=== PATIENT | male | born 1955 | race African-American/Black ===

== ENCOUNTER 2022-04-22 23:43 | Inpatient (IN) | payer MEDICARE, OTHER ==
[~2022-04-22] VITALS: Ht 167.6 cm; Wt 61.0 kg
[~2022-04-22 23:43] MED LIST: HYDR-4134 PO; LISI1TAB13 PO; OMEP40CA20 PO; QUET100T PO; TRAZ-251 PO
[2022-04-23] VITALS (13 sets, daily range): BP systolic 92–136; BP diastolic 54–88
[2022-04-23] MEDS ORDERED: FUROSEMIDE 40MG/4ML VIAL IV ONE (00:15)
[2022-04-23] MEDS ORDERED: ASPIRIN 81MG TABLET PO ONE (00:15)
[2022-04-23 00:27] LABS: BASOPHILS % 0.1 % (0.0-2.0); HEMATOCRIT. 33.7 % (42.0-52.0); HEMOGLOBIN. 11.1 g/dL (14.0-18.0); LYMPHOCYTES % 10.7 % (20.0-50.0); MEAN PLATELET VOLUME 7.5 fl (7.4-10.4); NEUTROPHILS % 81.2 % (40.0-76.0); PLATELET 553 x1000/uL (130-400); RED BLOOD CELL COUNT 3.96 mill/uL (4.7-6.1); RED CELL DISTRIBUTION WIDTH 13.9 % (11.6-14.6)
[2022-04-23 00:36] LABS: CHLORIDE 102 mEq/L (98-107)
[2022-04-23 01:26] LABS: BG BASE EXCESS -2.3 mmol/L (-2.0-2.0); BG CARBOXYHEMOGLOBIN 0.7 % (0.5-1.5); BG DEOXYHEMOGLOBIN 1.3 % (0.0-5.0); BG FRACTION INSPIRED OXYGEN 100; BG HCO3 ACT 21.6 mmol/L (22.0-26.0); BG METHEMOGLOBIN 0.1 % (0.0-1.5); BG OXYGEN SATURATION 98.7 % (92.0-98.5); BG OXYHEMOGLOBIN 97.9 % (94.0-97.0); BG PCO2 34.8 mmHg (35.0-45.0); BG PO2 131.1 mmHg (75.0-100.0); BG SAMPLE SITE RIGHT RADIAL; BG TOTAL HEMOGLOBIN 15.7 g/dL (12.0-18.0); BG VENT MODE MASK - NRB
[2022-04-23] MEDS: METOPROLOL TARTRATE 5MG/5ML VIAL IV SCH ×3 (01:30→02:00)
[2022-04-23] MEDS ORDERED: IPRATROPIUM/ALBUTEROL 0.5-3(2.5)MG/3ML NEB NEB PRN (07:30)
[2022-04-23] MEDS ORDERED: AZITHROMYCIN 500 MG in DEXT 5% WATER 250 ML IV SCH (07:30)
[2022-04-23] MEDS ORDERED: MAGNESIUM/ALUMINUM HYDROXIDE/SIMETHICONE 30ML UDC PO PRN (07:30)
[2022-04-23] MEDS ORDERED: NITROGLYCERIN 0.4MG TABLET SL SL PRN (07:30)
[2022-04-23] MEDS ORDERED: ACETAMINOPHEN 325MG TABLET PO PRN (07:30)
[2022-04-23] MEDS ORDERED: GUAIFENESIN 200MG/10ML SUGAR FREE UDC PO PRN (07:30)
[2022-04-23] MEDS ORDERED: CLONIDINE 0.1MG TABLET PO PRN (07:30)
[2022-04-23] MEDS ORDERED: DOCUSATE SODIUM 100MG CAPSULE PO PRN (07:30)
[2022-04-23] MEDS ORDERED: KETOROLAC 15MG/ML VIAL IV PRN (07:30)
[2022-04-23] MEDS ORDERED: ONDANSETRON HCL 4MG/2ML INJ IV PRN (07:30)
[2022-04-23 08:17] LABS: ETHANOL BLOOD < 10 mg/dL; TOTAL IRON BINDING CAPACITY 363 ug/dL (250-450)
[2022-04-23 08:34] LABS: FOLIC ACID (FOLATE) SERUM 9.1 ng/mL (>5.38)
[2022-04-23 08:42] LABS: BG BASE EXCESS -1.7 mmol/L (-2.0-2.0); BG CARBOXYHEMOGLOBIN 0.3 % (0.5-1.5); BG DEOXYHEMOGLOBIN 3.7 % (0.0-5.0); BG FRACTION INSPIRED OXYGEN 50; BG HCO3 ACT 21.5 mmol/L (22.0-26.0); BG METHEMOGLOBIN 0.4 % (0.0-1.5); BG OXYGEN SATURATION 96.3 % (92.0-98.5); BG OXYHEMOGLOBIN 95.6 % (94.0-97.0); BG PCO2 31.4 mmHg (35.0-45.0); BG PH 7.453 (7.350-7.450); BG PO2 91.8 mmHg (75.0-100.0); BG SAMPLE SITE RIGHT RADIAL; BG TOTAL HEMOGLOBIN 11.2 g/dL (12.0-18.0); BG VENT MODE MASK - BIPAP
[2022-04-23] MEDS ORDERED: CEFTRIAXONE 1 G PREMIX 50 ML IV SCH (09:00)
[2022-04-23] MEDS ORDERED: AZITHROMYCIN 500MG/250ML 250 ML IV SCH (09:00)
[2022-04-23] MEDS: METHYLPREDNISOLONE SOD SUCC 125 MG/2 ML VIAL IV SCH ×3 (09:01→21:00)
[2022-04-23] MEDS: ASCORBIC ACID 500 MG TABLET PO SCH ×2 (09:02→20:15)
[2022-04-23] MEDS: ASPIRIN 325MG EC TABLET PO SCH (09:02)
[2022-04-23] MEDS: ENOXAPARIN 40MG/0.4ML SYR SUBCUT SCH (09:02)
[2022-04-23] MEDS: ZINC SULFATE 220 MG ( 50 ) CAPSULE PO SCH (09:03)
[2022-04-23] MEDS: SPIRONOLACTONE 25MG TABLET PO SCH ×2 (09:04→20:15)
[2022-04-23] MEDS: FAMOTIDINE 20MG TABLET PO SCH (09:04)
[2022-04-23] MEDS: CHOLECALCIFEROL (D3) 1000 UNIT TABLET PO SCH (09:05)
[2022-04-23] MEDS: FUROSEMIDE 40MG/4ML VIAL IVP SCH ×2 (09:05→20:15)
[2022-04-23 10:02] LABS: CLARITY URINE CLEAR (CLEAR); COLOR URINE YELLOW (YELLOW); KETONES URINE NEGATIVE (NEGATIVE); LEUKOCYTE ESTERASE URINE NEGATIVE (NEGATIVE); NITRITE URINE NEGATIVE (NEGATIVE); OCCULT BLOOD URINE 2+ (NEGATIVE); PROTEIN URINE TRACE (NEGATIVE); SPECIFIC GRAVITY URINE 1.015 (1.005-1.030)
[2022-04-23 10:18] LABS: *AMPHETAMINES SCREEN URINE NEGATIVE (NEGATIVE); *BARBITURATES SCREEN URINE NEGATIVE (NEGATIVE); *BENZODIAZEPINES SCREEN URINE NEGATIVE (NEGATIVE); *COCAINE SCREEN URINE NEGATIVE (NEGATIVE); CANNABINOID URINE SCREEN PRESUMTIVE POSITIVE (NEGATIVE); METHADONE URINE SCREEN NEGATIVE (NEGATIVE); OPIATES URINE SCREEN NEGATIVE (NEGATIVE); PHENCYCLIDINE URINE SCREEN NEGATIVE (NEGATIVE)
[2022-04-23 15:39] LABS: CREATINE KINASE MB FRACTION 1.5 ng/mL (0.5-3.6)
[2022-04-23] MEDS: IPRATROPIUM/ALBUTEROL 0.5-3(2.5)MG/3ML NEB HHN SCH ×2 (16:16→20:53)
[2022-04-23] MEDS: ZOLPIDEM TARTRATE 5MG TABLET PO PRN (21:27)
[2022-04-24] VITALS (22 sets, daily range): BP systolic 99–145; BP diastolic 48–79
[2022-04-24] MEDS: IPRATROPIUM/ALBUTEROL 0.5-3(2.5)MG/3ML NEB HHN SCH ×4 (00:45→11:53)
[2022-04-24 01:22] LABS: CREATINE KINASE MB FRACTION 1.1 ng/mL (0.5-3.6)
[2022-04-24] MEDS: METOPROLOL TARTRATE 5MG/5ML VIAL IV SCH (03:24)
[2022-04-24] MEDS ORDERED: DILTIAZEM HCL 60MG TABLET PO NR (05:00)
[2022-04-24] MEDS: METHYLPREDNISOLONE SOD SUCC 125 MG/2 ML VIAL IV SCH (05:06)
[2022-04-24 07:41] LABS: HEMATOCRIT. 30.8 % (42.0-52.0); HEMOGLOBIN. 10.3 g/dL (14.0-18.0); MEAN CORPUSCULAR HEMOGLOBIN 27.8 pg (28.0-32.0); MEAN CORPUSCULAR VOLUME 82.7 fL (80.0-94.0); MEAN PLATELET VOLUME 8.1 fl (7.4-10.4); PLATELET 540 x1000/uL (130-400); RED BLOOD CELL COUNT 3.73 mill/uL (4.7-6.1); RED CELL DISTRIBUTION WIDTH 13.9 % (11.6-14.6)
[2022-04-24 07:53] LABS: CHLORIDE 99 mEq/L (98-107)
[2022-04-24] MEDS: SPIRONOLACTONE 25MG TABLET PO SCH ×2 (09:00→21:00)
[2022-04-24] MEDS: ZINC SULFATE 220 MG ( 50 ) CAPSULE PO SCH (09:45)
[2022-04-24] MEDS: FAMOTIDINE 20MG TABLET PO SCH (09:45)
[2022-04-24] MEDS: ASCORBIC ACID 500 MG TABLET PO SCH ×2 (09:45→21:00)
[2022-04-24] MEDS: ASPIRIN 325MG EC TABLET PO SCH (09:45)
[2022-04-24] MEDS: CHOLECALCIFEROL (D3) 1000 UNIT TABLET PO SCH (09:45)
[2022-04-24] MEDS: FUROSEMIDE 40MG/4ML VIAL IVP SCH ×2 (09:46→21:00)
[2022-04-24] MEDS: ENOXAPARIN 40MG/0.4ML SYR SUBCUT SCH (09:46)
[2022-04-24] MEDS ORDERED: DILTIAZEM HCL 30MG TABLET PO NR (10:45)
[2022-04-24] MEDS: CEFTRIAXONE 1,000 MG in DEXTROSE 5% WATER 50 ML IV SCH (10:47)
[2022-04-24] MEDS: DILTIAZEM HCL 90MG TABLET PO SCH ×3 (11:55→23:16)
[2022-04-24] MEDS ORDERED: DILTIAZEM HCL 60MG TABLET PO SCH (12:00)
[2022-04-24] MEDS: AZITHROMYCIN 500MG in DEXTROSE 5% WATER 250ML IV SCH (12:36)
[2022-04-24 13:00] LABS: PLATELET ESTIMATE INCREASED
[2022-04-24] MEDS: IPRATROPIUM BROMIDE (0.02%) 0.5MG/2.5ML NEB HHN SCH (20:44)
[2022-04-24] MEDS: ZOLPIDEM TARTRATE 5MG TABLET PO PRN (21:00)
[2022-04-25] VITALS (12 sets, daily range): BP systolic 100–143; BP diastolic 51–77
[2022-04-25] MEDS: IPRATROPIUM BROMIDE (0.02%) 0.5MG/2.5ML NEB HHN SCH ×4 (01:16→21:38)
[2022-04-25] MEDS: DILTIAZEM HCL 90MG TABLET PO SCH ×4 (05:50→23:58)
[2022-04-25] MEDS: SPIRONOLACTONE 25MG TABLET PO SCH ×2 (08:28→21:25)
[2022-04-25] MEDS: CHOLECALCIFEROL (D3) 1000 UNIT TABLET PO SCH (08:28)
[2022-04-25] MEDS: FAMOTIDINE 20MG TABLET PO SCH (08:28)
[2022-04-25] MEDS: ZINC SULFATE 220 MG ( 50 ) CAPSULE PO SCH (08:28)
[2022-04-25] MEDS: ASPIRIN 81MG EC TABLET PO SCH (08:29)
[2022-04-25] MEDS: AZITHROMYCIN 500MG in DEXTROSE 5% WATER 250ML IV SCH (08:29)
[2022-04-25] MEDS: ENOXAPARIN 40MG/0.4ML SYR SUBCUT SCH (08:31)
[2022-04-25] MEDS: FUROSEMIDE 40MG/4ML VIAL IVP SCH (08:32)
[2022-04-25] MEDS: ASCORBIC ACID 500 MG TABLET PO SCH ×2 (08:33→21:28)
[2022-04-25] MEDS: CEFTRIAXONE 1,000 MG in DEXTROSE 5% WATER 50 ML IV SCH (11:25)
[2022-04-25] MEDS: ACETAMINOPHEN 325MG TABLET PO PRN (21:28)
[2022-04-26] VITALS (13 sets, daily range): BP systolic 94–142; BP diastolic 42–76
[2022-04-26] MEDS: ZOLPIDEM TARTRATE 5MG TABLET PO PRN (01:14)
[2022-04-26] MEDS: IPRATROPIUM BROMIDE (0.02%) 0.5MG/2.5ML NEB HHN SCH ×2 (03:23→08:34)
[2022-04-26] MEDS: DILTIAZEM HCL 90MG TABLET PO SCH ×4 (04:29→23:54)
[2022-04-26] MEDS ORDERED: FUROSEMIDE 40MG/4ML VIAL IVP SCH (09:00)
[2022-04-26] MEDS: AZITHROMYCIN 500MG in DEXTROSE 5% WATER 250ML IV SCH (09:00)
[2022-04-26] MEDS: ZINC SULFATE 220 MG ( 50 ) CAPSULE PO SCH (09:33)
[2022-04-26] MEDS: CHOLECALCIFEROL (D3) 1000 UNIT TABLET PO SCH (09:33)
[2022-04-26] MEDS: FAMOTIDINE 20MG TABLET PO SCH (09:33)
[2022-04-26] MEDS: ASPIRIN 81MG EC TABLET PO SCH (09:33)
[2022-04-26] MEDS: ENOXAPARIN 40MG/0.4ML SYR SUBCUT SCH (09:33)
[2022-04-26] MEDS: ASCORBIC ACID 500 MG TABLET PO SCH ×2 (09:34→21:00)
[2022-04-26] MEDS: SPIRONOLACTONE 25MG TABLET PO SCH ×2 (09:34→21:00)
[2022-04-26] MEDS ORDERED: DIGOXIN 500MCG/2ML AMP IV NR (11:30)
[2022-04-26 17:14] LABS: CHLORIDE 98 mEq/L (98-107)
[2022-04-26] MEDS: CEFTRIAXONE 1,000 MG in DEXTROSE 5% WATER 50 ML IV SCH (17:19)
[2022-04-26] MEDS: DILTIAZEM HCL 5MG/ML 5ML VIAL IV PRN (17:20)
[2022-04-26] MEDS: DIGOXIN 125MCG TABLET PO SCH (18:00)
[2022-04-27] VITALS (17 sets, daily range): BP systolic 103–141; BP diastolic 48–94
[2022-04-27] MEDS: DILTIAZEM HCL 5MG/ML 5ML VIAL IV PRN (03:41)
[2022-04-27] MEDS: DILTIAZEM HCL 90MG TABLET PO SCH ×3 (06:10→18:16)
[2022-04-27] MEDS: CHOLECALCIFEROL (D3) 1000 UNIT TABLET PO SCH (07:44)
[2022-04-27] MEDS: ZINC SULFATE 220 MG ( 50 ) CAPSULE PO SCH (07:44)
[2022-04-27] MEDS: ASCORBIC ACID 500 MG TABLET PO SCH ×2 (07:44→23:01)
[2022-04-27] MEDS: FAMOTIDINE 20MG TABLET PO SCH (07:44)
[2022-04-27] MEDS: SPIRONOLACTONE 25MG TABLET PO SCH ×2 (07:44→23:00)
[2022-04-27] MEDS: ASPIRIN 81MG EC TABLET PO SCH (07:45)
[2022-04-27] MEDS: ENOXAPARIN 40MG/0.4ML SYR SUBCUT SCH (07:45)
[2022-04-27] MEDS: AZITHROMYCIN 500MG in DEXTROSE 5% WATER 250ML IV SCH (08:31)
[2022-04-27] MEDS: CEFTRIAXONE 1,000 MG in DEXTROSE 5% WATER 50 ML IV SCH (11:04)
[2022-04-27 14:55] LABS: BG BASE EXCESS 4.1 mmol/L (-2.0-2.0); BG CARBOXYHEMOGLOBIN 0.2 % (0.5-1.5); BG DEOXYHEMOGLOBIN 8.5 % (0.0-5.0); BG FRACTION INSPIRED OXYGEN 21; BG HCO3 ACT 26.8 mmol/L (22.0-26.0); BG METHEMOGLOBIN 0.3 % (0.0-1.5); BG OXYGEN SATURATION 91.5 % (92.0-98.5); BG PCO2 33.7 mmHg (35.0-45.0); BG PH 7.519 (7.350-7.450); BG PO2 58.6 mmHg (75.0-100.0); BG SAMPLE SITE RIGHT RADIAL; BG TOTAL HEMOGLOBIN 11.6 g/dL (12.0-18.0); BG VENT MODE ROOM AIR
[2022-04-27] MEDS: DIGOXIN 125MCG TABLET PO SCH (18:16)
[2022-04-27] MEDS: ACETAMINOPHEN 325MG TABLET PO PRN (23:03)
[2022-04-28] VITALS (22 sets, daily range): BP systolic 93–148; BP diastolic 54–85
[2022-04-28] MEDS: DILTIAZEM HCL 90MG TABLET PO SCH ×4 (01:02→17:57)
[2022-04-28] MEDS: ENOXAPARIN 40MG/0.4ML SYR SUBCUT SCH (08:33)
[2022-04-28] MEDS: ASCORBIC ACID 500 MG TABLET PO SCH ×2 (08:33→21:23)
[2022-04-28] MEDS: ASPIRIN 81MG EC TABLET PO SCH (08:33)
[2022-04-28] MEDS: FAMOTIDINE 20MG TABLET PO SCH (08:33)
[2022-04-28] MEDS: CHOLECALCIFEROL (D3) 1000 UNIT TABLET PO SCH (08:33)
[2022-04-28] MEDS: ZINC SULFATE 220 MG ( 50 ) CAPSULE PO SCH (08:33)
[2022-04-28] MEDS: SPIRONOLACTONE 25MG TABLET PO SCH ×2 (08:34→21:27)
[2022-04-28] MEDS ORDERED: LACTULOSE 20G/30ML UDC PO NR (16:45)
[2022-04-29] VITALS (11 sets, daily range): BP systolic 108–139; BP diastolic 57–79
[2022-04-29] MEDS: DILTIAZEM HCL 90MG TABLET PO SCH ×4 (00:59→17:25)
[2022-04-29] MEDS: ZINC SULFATE 220 MG ( 50 ) CAPSULE PO SCH (09:16)
[2022-04-29] MEDS: SPIRONOLACTONE 25MG TABLET PO SCH (09:16)
[2022-04-29] MEDS: CHOLECALCIFEROL (D3) 1000 UNIT TABLET PO SCH (09:16)
[2022-04-29] MEDS: ASCORBIC ACID 500 MG TABLET PO SCH (09:16)
[2022-04-29] MEDS: ENOXAPARIN 40MG/0.4ML SYR SUBCUT SCH (09:17)
[2022-04-29] MEDS: ASPIRIN 81MG EC TABLET PO SCH (09:18)
[2022-04-29] MEDS: FAMOTIDINE 20MG TABLET PO SCH (09:19)
[2022-04-29] MEDS ORDERED: ENOXAPARIN 40MG/0.4ML SYR SUBCUT NR (10:15)
[2022-04-29] MEDS ORDERED: CLOPIDOGREL 75MG TABLET PO SCH (10:15)
[2022-04-29] MEDS ORDERED: IRON SUCROSE COMPLEX 100 MG/5 ML ML IV NR (11:00)
[2022-04-29 11:49] LABS: HEMATOCRIT. 29.1 % (42.0-52.0); HEMOGLOBIN. 9.9 g/dL (14.0-18.0); MEAN CORPUSCULAR VOLUME 81.8 fL (80.0-94.0); MEAN PLATELET VOLUME 7.8 fl (7.4-10.4); PLATELET 568 x1000/uL (130-400); RED BLOOD CELL COUNT 3.55 mill/uL (4.7-6.1); RED CELL DISTRIBUTION WIDTH 13.7 % (11.6-14.6)
[2022-04-29 11:54] LABS: CHLORIDE 96 mEq/L (98-107)
[2022-04-29] MEDS ORDERED: IPRATROPIUM BROMIDE (0.02%) 0.5MG/2.5ML NEB HHN SCH (12:00)
[2022-04-29 14:05] LABS: PLATELET ESTIMATE INCREASED
[2022-04-29] MEDS: ACETAMINOPHEN 325MG TABLET PO PRN (14:31)
[2022-04-29] MEDS ORDERED: ENOXAPARIN 60MG/0.6ML SYR SUBCUT SCH (21:00)
== END 2022-04-29 19:20 | DRG 871 ==
LOC: ER 23:43 → 3WST 04-23 05:16 → EDBEDREQSVC 04-23 09:41 → 5EST 04-28 12:44
PROVIDERS: ADMIT Internal Medicine; ATTEND Internal Medicine
PROC: 5A09357 Assistance with Respiratory Ventilation, Less than 24 Consecutive Hours, Continuous Positive Airway Pressure (ICD-10-PCS; principal; 2022-04-23)
DX: A41.9 Sepsis, unspecified organism (principal); J96.01 Acute respiratory failure with hypoxia; J18.9 Pneumonia, unspecified organism; G93.41 Metabolic encephalopathy; I63.81 Other cerebral infarction due to occlusion or stenosis of small artery; J96.02 Acute respiratory failure with hypercapnia; I50.43 Acute on chronic combined systolic (congestive) and diastolic (congestive) heart failure; N17.0 Acute kidney failure with tubular necrosis; J44.1 Chronic obstructive pulmonary disease with (acute) exacerbation; J44.0 Chronic obstructive pulmonary disease with (acute) lower respiratory infection; E44.0 Moderate protein-calorie malnutrition; G81.94 Hemiplegia, unspecified affecting left nondominant side; R41.4 Neurologic neglect syndrome; R47.01 Aphasia; F31.9 Bipolar disorder, unspecified; F20.9 Schizophrenia, unspecified; D64.9 Anemia, unspecified; I48.0 Paroxysmal atrial fibrillation; I49.3 Ventricular premature depolarization; I11.0 Hypertensive heart disease with heart failure; R13.10 Dysphagia, unspecified; Z20.822 Contact with and (suspected) exposure to COVID-19; F12.90 Cannabis use, unspecified, uncomplicated; R53.81 Other malaise; R26.89 Other abnormalities of gait and mobility; Z79.899 Other long term (current) drug therapy; Z82.49 Family history of ischemic heart disease and other diseases of the circulatory system; Z56.0 Unemployment, unspecified; Z87.891 Personal history of nicotine dependence; R79.89 Other specified abnormal findings of blood chemistry; D50.9 Iron deficiency anemia, unspecified
CPT/HCPCS: 36415; 36600; 70551; 71045; 78580; 80048; 80053; 80061; 80162; 80305; 80320; 81003; 82375; 82550; 82553; 82607; 82746; 82805; 83036; 83540; 83550; 83605; 83735; 83880; 84100; 84145; 84443; 84484; 85025; 85379; 87426; 92523; 92610; 93005; 93306; 93970; 94640; 94660; 97116; 97162; 97166; 99291; C9803; J0456; J0696; J1160; J1650; J1940; J2930; J3490; J7060; G0480